=== PATIENT | male | born 1980 | race Caucasian/White ===

== ENCOUNTER 2020-06-25 15:48 | Emergency (ER) | payer OTHER ==
[~2020-06-25] VITALS: Ht 165.1 cm; Wt 81.8 kg
[2020-06-25 15:50] VITALS: BP 135/94
== END 2020-06-25 17:48 | disposition home or self-care (01) ==
LOC: EMS 15:48
DX: U07.1 COVID-19 (principal); J40 Bronchitis, not specified as acute or chronic
CPT/HCPCS: 71045; 99284; U0003